=== PATIENT | male | born 1985 | race Caucasian/White ===

== ENCOUNTER 2022-11-01 08:04 | Emergency (ER) | payer OTHER, SELFPAY ==
[2022-11-01 08:07] VITALS: BP 154/87; PULSE 81; RESP 14; TEMP 37; O2SAT 97; BMI 36.6
--- NOTE | 2022-11-01 08:29 | ED.MALEGU ---
HPI - Male Genitourinary General Chief complaint: Urogenital-Male Stated complaint: back pain or kidney issue Time Seen by Provider: 11/01/22 08:27 Source: patient Mode of arrival: Ambulatory History of Present Illness HPI Narrative: This is a 37-year-old male with history nonalcoholic hepatic steatosis, hypertension with sudden onset of right flank pain starting this morning. Patient states he woke up was in his normal activities started having right flank pain that has been increasingly intense. He states he will have occasionally peaks in intensity that is sort of waxes and wanes. No fevers or chills, no diaphoresis. No nausea or vomiting. He denies any chest pain or shortness of breath. No diarrhea, no constipation, no black or bloody stools. Patient denies dysuria, urgency frequency or hematuria. He has not had similar symptoms in the past. He notes some increased pain with movement but does not recall any injury or trauma to the area. He has not noticed any rash or skin changes. He denies any surgeries. No known drug allergies. No tobacco, occasional alcohol, no illicit. Patient has not had any prior history of kidney stones. He has not had similar symptoms in the past. Related Data Previous Rx's Medication Instructions Recorded ondansetron 4 mg disintegrating 4 mg PO Q6H PRN nausea and 11/01/22 tablet vomiting #10 tabs oxycodone 5 mg tablet 5 mg PO QID PRN pain #14 tabs 11/01/22 tamsulosin 0.4 mg capsule (Flomax) 0.4 mg PO DAILY #7 caps 11/01/22 Allergies Allergy/AdvReac Type Severity Reaction Status Date / Time No Known Drug Allergies Allergy Verified 11/01/22 08:28 Review of Systems Review of Systems ROS Unobtainable: All systems reviewed & are unremarkable except as noted in HPI and below Patient History Social History Smoking Status: Never smoker Smoking Status: Never smoker alcohol intake frequency: a few times a month Substance Use Type: does not use Exam Narrative Exam Narrative: GENERAL: Alert and oriented x three, male in [id number] distress. HEENT: Head normocephalic, atraumatic, EOMI, pupils reactive, face symmetric, moist mucous membranes NECK: Supple, full range of motion CARDIOVASCULAR: Regular rate and rhythm without murmurs, rubs or gallops. RESPIRATORY: Breath sounds equal bilaterally, no wheezes rales or rhonchi. ABDOMEN: Soft, nontender. Normoactive bowel sounds all 4 quadrants. No guarding or rebound, rigidity, no mass : No CVA tenderness BACK: No cervical, thoracic or lumbar vertebral point tenderness. Patient has normal range of motion. Muscle strength is 5/5 in lower extremities. Cap refill less than 2 seconds bilateral lower extremities. Sensation is intact in the lower extremities. EXTREMITIES: Normal range of motion, no clubbing or edema. Neurovascularly intact NEUROLOGICAL: Cranial nerves II through XII grossly intact. Moving all extremities SKIN: Warm, dry, no petechiae, no rashes or lesions. Initial Vital Signs Initial Vital Signs: Vital Signs Temperature 98.6 F 11/01/22 08:07 Pulse Rate 81 11/01/22 08:07 Respiratory Rate 14 11/01/22 08:07 Blood Pressure 154/87 H 11/01/22 08:07 Pulse Oximetry 97 11/01/22 08:07 Oxygen Delivery Method Room Air 11/01/22 08:07 Course Orders Ordered: Discontinued Medications Ketorolac Tromethamine (Ketorolac 30 Mg/Ml Vial) 15 mg IV NOW ONE Stop: 11/01/22 08:40 Last Admin: 11/01/22 08:48 Dose: 15 mg Documented By: NIRAV Tamsulosin HCl (Tamsulosin 0.4 Mg Capsule) 0.4 mg PO NOW ONE Stop: 11/01/22 09:30 Last Admin: 11/01/22 09:58 Dose: Not Given Documented By: ESTEVAN Vital Signs Vital signs: Vital Signs - 8 hr 11/01/22 08:07 Temperature 98.6 F Pulse Rate 81 Respiratory Rate 14 Blood Pressure 154/87 H Pulse Oximetry 97 Oxygen Delivery Method Room Air MDM - Male Genitourinary Lab Data 11/01/22 08:15 11/01/22 08:15 Labs: Lab Results 11/01/22 11/01/22 11/01/22 Range/Units 08:10 08:15 08:15 WBC 7.8 (4.5-11.0) X10^3/uL RBC 4.65 (4.5-5.9) X10^6/uL Hgb 13.7 (13.5-17.5) g/dL Hct 40.1 L (41-53) % MCV 86.3 (80-100) fL MCH 29.4 (26-34) PG MCHC 34.1 (30-36) % RDW 13.7 (11.6-14.8) % Plt Count 199 (150-400) X10^3/uL Neut % (Auto) 58.6 (50-75) % Lymph % (Auto) 29.6 (25-40) % [place] % (Auto) 6.8 (3-14) % Eos % (Auto) 4.1 H (2-4) % Baso % (Auto) 0.9 (0-2) % Neut # (Auto) 4600 (4302-4683) /uL Lymph # (Auto) 2300 (4239-2759) /uL [place] # (Auto) 500 (0-900) /uL Eos # (Auto) 300 (0-450) /uL Baso # (Auto) 100 (0-100) /uL Sodium 141 (137-145) mmol/L Potassium 4.3 (3.4-5.1) mmol/L Chloride 108 H (98-107) mmol/L Carbon Dioxide 23 (22-32) mmol/L BUN 19 (9-20) mg/dL Creatinine 1.23 (0.66-1.25) mg/dL Estimated GFR > 60 (>60) mL/min BUN/Creatinine Ratio 15.4 (6-22) Glucose 110 H (70-100) mg/dL Calcium 8.9 (8.4-10.2) mg/dL Total Bilirubin 0.2 (0.2-1.3) mg/dL AST 73 H (17-59) IU/L ALT 140 H (<50) IU/L Alkaline Phosphatase 84 (38-126) U/L Total Protein 7.5 (6.3-8.2) g/dL Albumin 4.5 (3.5-5.0) g/dL Globulin 3.0 (1.7-4.1) g/dL Albumin/Globulin Ratio 1.5 (1.0-2.8) Lipase 114 (23-300) U/L Urine RBC None seen (0-5/HPF) Urine WBC None seen (0-5/HPF) Ur Squamous Epith Cells None seen (0-5/HPF) Urine Bacteria None seen (None) Ur Culture Indicated? Cult not indicated Urine Dip Bedside Urine Glucose Negative Bedside Urine Bilirubin - Negative Bedside Urine Ketone + 15 Urine Specific [place] 1.020 Bedside Urine Occult Blood - Negative Bedside Urine pH 6.5 Bedside Urine Protein - Negative Bedside Urine Urobilinogen 0.2 Bedside Urine Nitrite - Negative Bedside Urine Leukocytes - Negative Esterase Imaging Data renal US: Radiologist's Impression: [address] [address] Ultrasound Report Signed Patient: Kb Sethi MR#: [id number] : 1985 Acct:[id number] Age/Sex: 37 / M Date of Service: 11/01/22 Loc: ED Accession Number: [id number] ?? Procedure: US renal complete Ordering Provider: Muna Dwyer D.O. PROCEDURE:? US RENAL COMPLETE ? INDICATIONS:? RIGHT FLANK PAIN SUSPECTED KIDNEY STONE ? TECHNIQUE:? Real-time scanning was performed of the kidneys and bladder, with image documentation.? ? COMPARISON:? None. ? FINDINGS:? ? Kidneys:? Kidneys are normal in size.? Right kidney measures 12.8 cm long; left kidney measures 10.3 cm long.? Right renal cortical thickness is 2.1 cm; left renal cortical thickness is 1.6 cm.? Renal cortical echotexture is normal.? No hydronephrosis.? Multiple small echogenic foci with posterior shadowing noted in the right kidney measuring up to 0.8 cm in size.? These likely represent right-sided renal stones.? No evidence for renal stones on the left.? No suspicious solid mass lesions.? ? Bladder:? Urinary bladder was not evaluated on this study secondary to patient voiding prior to the examination.? No gross abnormality seen. ? Miscellaneous:? No free pelvic fluid.? ? IMPRESSION:? Multiple small nonobstructing right-sided nephroliths.? No evidence for hydronephrosis.? Otherwise, unremarkable sonographic evaluation of the bilateral kidneys. ? The urinary bladder was not evaluated secondary to patient voiding just prior to the examination. ? ? Dictated by: Chris Tobin M.D. on 11/01/2022 at 9:17 ? ? Approved by: Chris Tobin M.D. on 11/01/2022 at 9:20?? MDM Narrative Medical decision making narrative: 37-year-old with sudden onset of right flank pain he notes little bit worse with movement but symptoms otherwise seem more consistent with possible nephrolithiasis. Patient's point of care dip was negative, urine microscopy negative. Patient had CBC, CMP and lipase, renal ultrasound was obtained to evaluate for hydro or obvious blockage. Labs showed mild elevated LFTs patient states he has known hepatic steatosis, copy was provided to the patient as he is monitoring his levels with his physician. Renal ultrasound shows multiple small right renal nonobstructing stones without hydro. Patient was given a dose of Toradol here in the department, minimal improvement. He defers anything stronger as he is driving himself today. Plan for Tylenol/ibuprofen as needed narcotic, Flomax return precautions. Patient expressed understanding. Did print a copy of his CMP for him to take home. Patient was also given referral to Urology if stone does not passing over the next several days. Discharge Plan Departure Patient Disposition: Home Clinical Impression: Kidney stone Instructions: DI for Kidney Stones Activity Restrictions/Additional Instructions: Follow-up with urology if your symptoms are not improving over the next several days. Referral is included below. Please call to set up an appointment. Take Flomax once daily until gone You may take Tylenol up to a 1000 mg every 6 hours and/or ibuprofen up to 600 mg every 6 hours for pain. Take 1 tablet of Zofran every 6 hours as needed for nausea. If in adequate you can take 1-2 tablets of oxycodone every 6 hours as needed for pain. This medication can make you sleepy do not drive, perform hazardous activities or make any major decisions while taking it. This medication will make you constipated please take a stool softener once to twice daily until stools are soft and regular. Prescription sent to [facility] in [place]. Please return for fevers, new or worsening abdominal back or flank pain, persistent vomiting, difficulty with urination or other new or concerning changes. Prescriptions: New ondansetron 4 mg tablet,disintegrating 4 mg PO Q6H PRN (Reason: nausea and vomiting) Qty: 10 0RF oxycodone 5 mg tablet 5 mg PO QID PRN (Reason: pain) Qty: 14 0RF tamsulosin [Flomax] 0.4 mg capsule 0.4 mg PO DAILY Qty: 7 0RF Referrals: Rosie Laguerre MD [Physician] - Provider,Rasheed JERNIGAN [Primary Care Provider] - Stand Alone Forms: Patient Portal/API, Work Release Note
--- NOTE | 2022-11-01 08:39 | DI.US.S_ITS ---
PROCEDURE: US RENAL COMPLETE INDICATIONS: RIGHT FLANK PAIN SUSPECTED KIDNEY STONE TECHNIQUE: Real-time scanning was performed of the kidneys and bladder, with image documentation. COMPARISON: None. FINDINGS: Kidneys: Kidneys are normal in size. Right kidney measures 12.8 cm long; left kidney measures 10.3 cm long. Right renal cortical thickness is 2.1 cm; left renal cortical thickness is 1.6 cm. Renal cortical echotexture is normal. No hydronephrosis. Multiple small echogenic foci with posterior shadowing noted in the right kidney measuring up to 0.8 cm in size. These likely represent right-sided renal stones. No evidence for renal stones on the left. No suspicious solid mass lesions. Bladder: Urinary bladder was not evaluated on this study secondary to patient voiding prior to the examination. No gross abnormality seen. Miscellaneous: No free pelvic fluid. IMPRESSION: Multiple small nonobstructing right-sided nephroliths. No evidence for hydronephrosis. Otherwise, unremarkable sonographic evaluation of the bilateral kidneys. The urinary bladder was not evaluated secondary to patient voiding just prior to the examination. Dictated by: Chris Tobin M.D. on 11/01/2022 at 9:17 Approved by: Chris Tobin M.D. on 11/01/2022 at 9:20
[2022-11-01 08:47] LABS: Add Manual Diff / Slide Review NO; Basophils Absolute Auto 100 /uL (0-100); Basophils Percent Auto 0.9 % (0-2); Eosinophils Absolute Auto 300 /uL (0-450); Eosinophils Percent Auto 4.1 % (2-4); Hematocrit 40.1 % (41-53); Hemoglobin 13.7 g/dL (13.5-17.5); Lymphocytes Absolute Auto 2300 /uL (1100-4500); Lymphocytes Percent Auto 29.6 % (25-40); Mean Corpuscular HGB Conc 34.1 % (30-36); Mean Corpuscular Hemoglobin 29.4 PG (26-34); Mean Corpuscular Volume 86.3 fL (80-100); Monocytes Absolute Auto 500 /uL (0-900); Monocytes Percent Auto 6.8 % (3-14); Neutrophils Absolute Auto 4600 /uL (1500-7000); Neutrophils Percent Auto 58.6 % (50-75); Platelet Count 199 X10^3/uL (150-400); Red Blood Cell Count 4.65 X10^6/uL (4.5-5.9); Red Cell Distribution Width 13.7 % (11.6-14.8); White Blood Cell Count 7.8 X10^3/uL (4.5-11.0)
[2022-11-01 08:48] LABS: Bacteria Urine None Seen; Culture Indicated Urine Cult Not Indicated; RBC Urine None Seen (0-5/HPF); Squamous Epithelial Cell Urine None Seen (0-5/HPF); WBC Urine None Seen (0-5/HPF)
[2022-11-01] MEDS: KETOROLAC 30 MG/ML VIAL 15 MG IV (08:48)
[2022-11-01 08:53] LABS: Alanine Aminotransferase 140 IU/L (<50); Albumin 4.5 g/dL (3.5-5.0); Albumin Globulin Ratio 1.5 (1.0-2.8); Alkaline Phosphatase 84 U/L (38-126); Aspartate Aminotransferase 73 IU/L (17-59); BUN Creatinine Ratio 15.4 (6-22); Bilirubin Total 0.2 mg/dL (0.2-1.3); Blood Urea Nitrogen 19 mg/dL (9-20); Calcium 8.9 mg/dL (8.4-10.2); Carbon Dioxide 23 mmol/L (22-32); Chloride 108 mmol/L (98-107); Estimated Glomerular Filt Rate > 60 mL/min (>60); Glucose 110 mg/dL (70-100); HEMOLYSIS 39 (0-50); Lipase 114 U/L (23-300); Potassium 4.3 mmol/L (3.4-5.1); Sodium 141 mmol/L (137-145); Total Protein 7.5 g/dL (6.3-8.2)
[2022-11-01 09:59] VITALS: BP 138/78; PULSE 70; RESP 17; O2SAT 99
== END 2022-11-01 10:00 | disposition home or self-care (01) ==
PROVIDERS: Emergency Provider Emergency Medicine
DX: N20.0 Calculus of kidney (principal)
CPT/HCPCS: 36415; 76770; 80053; 81003; 81015; 83690; 85025; 87086; 96374; 99284; J1885